=== PATIENT | male | born 1990 | race Caucasian/White ===

== ENCOUNTER 2017-03-06 22:50 | Emergency (ER) | payer BC ==
[2017-03-06] MEDS: METHYLPREDNISOLONE 125 MG INJ IM (23:30)
== END 2017-03-07 00:06 | disposition home or self-care (01) ==
LOC: FTE 22:50
DX: R21 Rash and other nonspecific skin eruption (principal)
CPT/HCPCS: 96372; 99284-25

== ENCOUNTER 2017-03-23 14:36 | Emergency (ER) | payer BC ==
[2017-03-23] MEDS: FAMOTIDINE 20 MG INJ IV (15:31)
[2017-03-23] MEDS: METHYLPREDNISOLONE 125 MG INJ IV (15:32)
[2017-03-23] MEDS: DIPHENHYDRAMINE 50 MG INJ IV (15:32)
[2017-03-23] MEDS: SOD CHLORIDE 0.9% 1,000 ML IV (15:33)
[2017-03-23 15:42] LABS: ADD MAN DIFF? NO
[2017-03-23 15:44] LABS: BASOPHILS % 0.1 % (0.0-2.0); EOSINOPHILS # 0.3 10^3/ul (0.0-0.5); EOSINOPHILS % 4.2 % (0.0-7.0); HEMOGLOBIN 14.2 g/dl (14.0-18.0); LYMPHOCYTES # 1.8 10^3/ul (0.8-2.9); LYMPHOCYTES % 25.5 % (15.0-51.0); MEAN CORPUSCULAR HEMOGLOBIN 31.8 pg (29.0-33.0); MEAN CORPUSCULAR HGB CONC 35.5 g/dl (32.0-37.0); MEAN CORPUSCULAR VOLUME 89.5 fl (82.0-101.0); MEAN PLATELET VOLUME 10.6 fl (7.4-10.4); MONOCYTE # 0.7 10^3/ul (0.3-0.9); MONOCYTES % 9.5 % (0.0-11.0); NEUTROPHIL # 4.2 10^3/ul (1.6-7.5); NEUTROPHILS % 60.6 % (39.0-77.0); PLATELET COUNT 224 10^3/UL (140-415); RED BLOOD COUNT 4.47 10^6/ul (4.70-6.10); RED CELL DISTRIBUTION WIDTH 13.3 % (11.5-14.5)
[2017-03-23 15:44] LABS: WHITE BLOOD COUNT 6.9 10^3/ul (4.8-10.8)
[2017-03-23 16:19] LABS: ANION GAP 14 (8-16); BLOOD UREA NITROGEN 9 mg/dl (7-20); CALCIUM 9.4 mg/dl (8.4-10.2); CARBON DIOXIDE 26 mmol/L (21-31); CHLORIDE 107 mmol/L (97-110); GLUCOSE 87 mg/dl (70-220); POTASSIUM 4.3 mmol/L (3.5-5.1); SODIUM 143 mmol/L (135-144)
== END 2017-03-23 17:05 | disposition home or self-care (01) ==
LOC: FTE 14:36
DX: R21 Rash and other nonspecific skin eruption (principal)
CPT/HCPCS: 80048; 85025; 96374; 96375; 99284-25

== ENCOUNTER 2017-03-31 22:41 | Emergency (ER) | payer BC ==
[2017-03-31] MEDS: FAMOTIDINE 20 MG TAB PO (23:24)
[2017-03-31] MEDS: ONDANSETRON (ODT) 4 MG TAB ODT (23:25)
[2017-03-31] MEDS: DIPHENHYDRAMINE 50 MG INJ IM (23:26)
[2017-03-31] MEDS: DEXAMETHASONE 10 MG/ML 1 ML INJ IM (23:26)
== END 2017-04-01 01:59 | disposition home or self-care (01) ==
LOC: FTE 04-01 01:59
DX: L50.9 Urticaria, unspecified (principal); R07.9 Chest pain, unspecified
CPT/HCPCS: 70360; 71046; 96372; 99284-25

== ENCOUNTER 2017-05-17 19:16 | Emergency (ER) | payer BC | END 2017-05-17 20:11 | disposition left against medical advice (07) | LOC: FTE 19:16 | DX: Z01.89 Encounter for other specified special examinations (principal) | CPT/HCPCS: 99283 ==

== ENCOUNTER → 2017-05-17 | Emergency (ER) | payer BC | END | disposition home or self-care (01) | LOC: FTE 07:01 | DX: B86 Scabies (principal) | CPT/HCPCS: 99283 ==

== ENCOUNTER 2018-05-16 21:33 | Emergency (ER) | payer BC | END 2018-05-16 23:46 | disposition home or self-care (01) | LOC: FTE 21:33 | DX: R07.89 Other chest pain (principal) | CPT/HCPCS: 99283; 99283-25 ==

== ENCOUNTER 2018-06-27 03:12 | Emergency (ER) | payer BC ==
[2018-06-27] MEDS: DIPHENHYDRAMINE 25 MG CAP PO (04:04)
[2018-06-27] MEDS: predniSONE 20 MG TAB PO (04:04)
== END 2018-06-27 04:36 | disposition home or self-care (01) ==
LOC: FTE 03:12
DX: L50.0 Allergic urticaria (principal)
CPT/HCPCS: 99283; J7512